=== PATIENT | male | born 1935 | race Caucasian/White ===

== ENCOUNTER 2022-10-04 05:37 | Day surgery (SDC) | payer MEDICARE ==
[2022-10-01 10:01] VITALS: BMI 26.6
[2022-10-04] MEDS ORDERED: oFLOXacin 0.3% Opth 5 ML BOT ONE (06:43)
[2022-10-04] MEDS ORDERED: PROPOFOL 20 ML ONE (07:47)
[2022-10-04] MEDS ORDERED: Lidocaine 1% PF 5 ML VIAL ONE (07:48)
[2022-10-04] MEDS ORDERED: ePHEDrine Sulfate 50 MG/10 ML VIAL ONE (07:53)
== END 2022-10-04 09:28 | disposition home or self-care (01) ==
LOC: CSHSDC 05:37
PROVIDERS: ATTEND Otolaryngology Plastic Surgery within the Head & Neck
PROC: 099600Z Drainage of Left Middle Ear with Drainage Device, Open Approach (ICD-10-PCS; principal; 2022-10-04)
PROC: 099500Z Drainage of Right Middle Ear with Drainage Device, Open Approach (ICD-10-PCS; 2022-10-04)
DX: H90.6 Mixed conductive and sensorineural hearing loss, bilateral (principal); H65.23 Chronic serous otitis media, bilateral; H69.83 Other specified disorders of Eustachian tube, bilateral; I13.0 Hypertensive heart and chronic kidney disease with heart failure and stage 1 through stage 4 chronic kidney disease, or unspecified chronic kidney disease; I50.9 Heart failure, unspecified; N18.30 Chronic kidney disease, stage 3 unspecified; E78.00 Pure hypercholesterolemia, unspecified; Z79.899 Other long term (current) drug therapy; Z87.891 Personal history of nicotine dependence; I25.10 Atherosclerotic heart disease of native coronary artery without angina pectoris; Z95.1 Presence of aortocoronary bypass graft
CPT/HCPCS: J2704